=== PATIENT | male | born 1985 | race Caucasian/White ===

== ENCOUNTER 2016-09-19 21:32 | Emergency (ER) | payer OTHER ==
[~2016-09-19] VITALS: Ht 185.4 cm; Wt 78.6 kg
--- OUTSIDE RECORDS SUMMARY | 2016-09-19 21:42 | XMS REPORT | Referral Summary ---
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 Role Phone No PCP, Pt States PCP [phone] Encounter VC Date(s): 04/15/15 - 04/16/15 [facility] [address] [place] [address] [phone] Discharge Diagnosis: Acute kidney injury Discharge Diagnosis: Pancreatitis Discharge Diagnosis: Alcoholism Discharge Disposition: 01-Home or Self Care Attending Physician: Luis Rodriguez MD Admitting Physician: Kelsie Tidwell DO Vital Signs Most recent to 1 oldest [Reference Range]: Temperature Oral 36.4 degC [35.8-37.3 degC] (04/16/15 8:05 AM) Peripheral Pulse 64 bpm Rate [60-100 bpm] (04/16/15 8:05 AM) Heart Rate Monitored 95 bpm [60-100 bpm] (04/15/15 6:48 PM) Respiratory Rate 18 br/min [14-20 br/min] (04/16/15 8:05 AM) Blood Pressure 141/68 mmHg [90-140/60-90 mmHg] *HI* (04/16/15 8:05 AM) Mean Arterial 123 mmHg Pressure, Cuff (04/15/15 6:48 PM) SpO2 97 % (04/16/15 8:05 AM) Problem List Condition Effective Dates Status Health Status Informant Acute Active pain(Confirmed) Alcoholism(Confirmed Active ) At risk of venous 04/16/15 Active thromboembolus(Confi rmed)1 Acute kidney Active injury(Confirmed) Pancreatitis(Confirm Active ed) Tobacco Active patient user(Confirmed) 1Problem added by Discern Expert Allergies, Adverse Reactions, Alerts No Known Medication Allergies Medications [place] 10 mg-325 mg oral tablet 1 tabs, Oral, q4hr, as needed for pain, # 20 tabs, 0 Refill(s) Start Date: 04/16/15 Status: Orderedoxazepam 15 mg oral capsule 15 mg 1 caps, Oral, TID, # 21 caps, 0 Refill(s) Start Date: 04/16/15 Status: Orderedthiamine 100 mg oral tablet 100 mg 1 tabs, Oral, Daily, # 30 tabs, 0 Refill(s) Start Date: 04/16/15 Status: OrderedZofran 4 mg oral tablet 4 mg 1 tabs, Oral, q6hr, Nausea or Vomiting | as needed for nausea/vomiting, # 20 tabs, 0 Refill(s) Start Date: 04/16/15 Status: Ordered Results Hematology Most recent to 1 oldest [Reference Range]: WBC [4.8-10.8 8.4 10*3/uL 10*3/uL] (04/16/15 5:45 AM) RBC [4.60-6.20] 3.94 *LOW* (04/16/15 5:45 AM) Hgb [14.0-18.0 13.3 gm/dL gm/dL] *LOW* (04/16/15 5:45 AM) Hct [42.0-52.0 %] 39.3 % *LOW* (04/16/15 5:45 AM) MCV [82.0-99.0 fL] 99.7 fL *HI* (04/16/15 5:45 AM) MCH [27.0-32.0 pg] 33.8 pg *HI* (04/16/15 5:45 AM) MCHC [32.0-36.0 33.8 gm/dL gm/dL] (04/16/15 5:45 AM) RDW [11.5-14.5 %] 12.7 % (04/16/15 5:45 AM) Platelet [150-400 136 10*3/uL 10*3/uL] *LOW* (04/16/15 5:45 AM) MPV [9.4-12.3 fL] 10.9 fL (04/16/15 5:45 AM) Immature 0.2 % Granulocytes (04/15/15 3:16 PM) [0.0-1.0 %] Neutrophils [51-75 86 % %] *HI* (04/15/15 3:16 PM) Lymphocytes [20-46 7 % %] *LOW* (04/15/15 3:16 PM) Monocytes [4-11 %] 7 % (04/15/15 3:16 PM) Eosinophils [0-4 %] 0 % (04/15/15 3:16 PM) Basophils [0-2 %] 0 % (04/15/15 3:16 PM) Neutro Absolute 12.78 10*3 [1.90-7.00 10*3] *HI* (04/15/15 3:16 PM) Lymph Absolute 0.98 10*3 [0.80-3.30 10*3] (04/15/15 3:16 PM) [place] Absolute 1.09 10*3 [0.30-1.00 10*3] *HI* (04/15/15 3:16 PM) Eos Absolute 0.01 10*3 [0.00-0.50 10*3] (04/15/15 3:16 PM) Baso Absolute 0.01 10*3 [0.00-0.20 10*3] (04/15/15 3:16 PM) Nucleated RBC 0.0 /100 WBC Automated [0 /100 (04/15/15 3:16 PM) WBC] Coagulation Most recent to 1 oldest [Reference Range]: INR [0.9-1.2] 1.2 (04/16/15 5:45 AM) Chemistry Most recent to 1 oldest [Reference Range]: Sodium Lvl [136-144 137 mEq/L mEq/L] (04/16/15 5:45 AM) Potassium Lvl 3.6 mEq/L [3.6-5.1 mEq/L] (04/16/15 5:45 AM) Chloride [99-109 98 mEq/L mEq/L] *LOW* (04/16/15 5:45 AM) CO2 [22-32 mEq/L] 29 mEq/L (04/16/15 5:45 AM) AGAP [3-20] 10 (04/16/15 5:45 AM) BUN [4-20 mg/dL] 5 mg/dL (04/16/15 5:45 AM) Glucose Lvl [70-100 103 mg/dL mg/dL] *HI* (04/16/15 5:45 AM) Creatinine Lvl 0.61 mg/dL [0.64-1.27 mg/dL] *LOW* (04/16/15 5:45 AM) eGFR [>60] >60 1 (04/16/15 5:45 AM) Calcium Lvl 9.2 mg/dL [8.6-10.0 mg/dL] (04/16/15 5:45 AM) Albumin Lvl [3.5-4.8 3.8 gm/dL gm/dL] (04/16/15 5:45 AM) Total Protein 6.7 gm/dL [6.1-7.9 gm/dL] (04/16/15 5:45 AM) Globulin [1.9-4.3 2.9 gm/dL gm/dL] (04/16/15 5:45 AM) ALT [17-63 U/L] 60 U/L (04/16/15 5:45 AM) AST [15-41 U/L] 56 U/L *HI* (04/16/15 5:45 AM) Alk Phos [26-104 44 U/L U/L] (04/16/15 5:45 AM) Bili Total [0.2-1.2 1.5 mg/dL 2 mg/dL] *HI* (04/16/15 5:45 AM) Magnesium Lvl 1.4 mg/dL [1.8-2.5 mg/dL] *LOW* (04/15/15 3:16 PM) Lipase Lvl [8-48 206 U/L U/L] *HI* (04/16/15 5:45 AM) Chol [0-200 mg/dL] 120 mg/dL (04/16/15 5:45 AM) Trig [0-150 mg/dL] 41 mg/dL (04/16/15 5:45 AM) HDL [>40 mg/dL] 69 mg/dL (04/16/15 5:45 AM) LDL [0-100 mg/dL] 43 mg/dL (04/16/15 5:45 AM) VLDL Cholesterol 8 mg/dL [0-30 mg/dL] (04/16/15 5:45 AM) Cardiac Risk 1.7 [0.0-5.7] (04/16/15 5:45 AM) Hep A IgM Negative (04/16/15 5:45 AM) Hep Bs Ag Negative (04/16/15 5:45 AM) Hep C Ab Negative (04/16/15 5:45 AM) Hep B Core IgM Negative (04/16/15 5:45 AM) HIV 1 and 2 Abs Non-reactive (04/16/15 5:45 AM) 1Result Comment: Multiply eGFR results by 1.21 for race.2Result Comment: Naproxen, specifically the metabolite O-desmethylnaproxen, may cause spurious elevation in Total Bilirubin levels.Toxicology Most recent to 1 oldest [Reference Range]: Ethanol Lvl Not Detected (04/15/15 3:16 PM) U Amphetamine Scrn Negative (04/15/15 3:16 PM) U Cocaine Scrn Negative (04/15/15 3:16 PM) U Cannab Scrn Positive *ABN* (04/15/15 3:16 PM) U Opiate Scrn Negative (04/15/15 3:16 PM) U PCP Scrn Negative (04/15/15 3:16 PM) U Benzodiazepine Negative Scrn (04/15/15 3:16 PM) U Barbiturate Scrn Negative (04/15/15 3:16 PM) Methadone Lvl Negative (04/15/15 3:16 PM) Tricyclics Not Detected 1 (04/15/15 3:16 PM) 1Result Comment: Cut-off concentrations: Amphetamines: 1000 ng/mL Cocaine: 300 ng/mL Cannabinoid: 50 ng/mL Opiate: 300 ng/mL Phencyclidine (PCP): 25 ng/mL Benzodiazepine: 200 ng/mL Barbiturate: 200 ng/mL Methadone: 300 ng/mL Tricyclic: 300 ng/mL The urine drug screen assays are qualitative screens. A more specific GC/MS method must be performed to obtain a confirmed analytical result. Unconfirmed screening results must not be used for non-medical purposes(e.g. employment or legal testing)Urinalysis Most recent to 1 oldest [Reference Range]: UA Color Tami *ABN* (04/15/15 3:16 PM) UA Appear Clear (04/15/15 3:16 PM) UA pH [5.0-8.0] 7.0 (04/15/15 3:16 PM) UA Leuk Est Pos 1+ [Negative] *ABN* (04/15/15 3:16 PM) UA Nitrite Positive [Negative] *ABN* (04/15/15 3:16 PM) UA Protein Pos 1+ [Negative] *ABN* (04/15/15 3:16 PM) UA Glucose Negative [Negative] (04/15/15 3:16 PM) UA Ketones Pos 3+ [Negative] *ABN* (04/15/15 3:16 PM) UA Urobilinogen 8.0 mg/dL [<1.0 mg/dL] *ABN* (04/15/15 3:16 PM) UA Bili [Negative] Positive *ABN* (04/15/15 3:16 PM) UA Blood [Negative] Negative (04/15/15 3:16 PM) UA Spec Grav 1.031 [1.003-1.030] *HI* (04/15/15 3:16 PM) Type Clean Catch (04/15/15 3:16 PM) UA WBC [0-4] 5-10 *ABN* (04/15/15 3:16 PM) Epithelial Cells 2-5 (04/15/15 3:16 PM) UA Mucous Present (04/15/15 3:16 PM) Immunizations Vaccine Date Refusal Reason influenza virus vaccine, inactivated 04/16/15 Procedures No data available for this section Social History Social History Type Response Smoking Status Current every day smoker; Type: Cigarettes Assessment and Plan No data available for this section"
[2016-09-19] MEDS ORDERED: LORazepam 2 MG/ML (ATIVAN) 1 ML VIAL IV ONE (21:50)
[2016-09-19] MEDS ORDERED: MAGNESIUM SULFATE 1GM VIAL 2 GM, THIAMINE INJ 100 MG, MULTIVITAMIN INJ 10 ML in D5LR 1,... IV SCH (21:50)
--- NOTE | 2016-09-19 21:55 | NUR ---
Pt presents to ER in custody of poilce with c/o alcohol withdrawal. Pt admitted to ER room 1. Pt states he's been drinking at least 1 liter of scotch a day for years. He states he is having withdrawal with nausea. Medical information obtained from patient. Police informed staff that pt has given them six different names. Possibility that information obtained may not be completely accurate.
[2016-09-19] MEDS ORDERED: THIAMINE 100 MG/ML (VITAMIN B1) 2 ML VIAL ONE (22:00)
[2016-09-19] MEDS ORDERED: MULTIVITAMINS (MVI) 2 5 ML VIALS IV ONE (22:01)
[2016-09-19] MEDS ORDERED: MAGNESIUM SULFATE 1 GM/2 ML VIAL ONE (22:01)
[2016-09-19 22:04] LABS: BASOPHILS % (AUTO) 0 % (0-2); EOSINOPHILS % (AUTO) 0 % (0-4); LYMPHOCYTES # (AUTO) 1.5 X10^3; MEAN CORPUSCULAR HGB CONC 34.6 g/dL (31.0-37.0); MEAN CORPUSCULAR VOLUME 96 FL (80-100); MEAN PLATELET VOLUME 10.9 FL (6.0-9.5); MONOCYTES # (AUTO) 0.6 X10^3; MONOCYTES % (AUTO) 7 % (3-11); NEUTROPHILS # (AUTO) 6.4 X10^3; NEUTROPHILS % (AUTO) 75 % (51-67); PLATELET COUNT 179 10^3uL (150-450); WHITE BLOOD COUNT 8.57 10^3uL (4.0-11.0)
[2016-09-19 22:08] LABS: MEAN CORPUSCULAR HEMOGLOBIN 33.1 PG (26.0-34.0)
[2016-09-19 22:15] LABS: ALBUMIN 4.3 g/dL (3.4-5.0); ALKALINE PHOSPHATASE 84 U/L (38-126); ANION GAP 17.4 MEQ/L (3-15); BUN/CREATININE RATIO 13 (10-20); CALCULATED IONIZED CALCIUM 3.8 mg/dL (3.8-4.6); TOTAL PROTEIN 7.8 g/dL (6.4-8.5)
[2016-09-19 22:17] LABS: LIPASE* < 10 U/L (23-300)
[2016-09-19 23:22] LABS: CLARITY,URINE Clear; GLUCOSE, URINE (UA) Negative (Negative); LEUKOCYTE ESTERASE ,URINE Trace (Negative)
[2016-09-19 23:35] LABS: COLOR,URINE Dark Yellow
[2016-09-19 23:36] LABS: BILIRUBIN,URINE 2+ (Negative)
[2016-09-19 23:44] LABS: AMPHETAMINE SCREEN, URINE Negative (Negative); CANNABINOID SCREEN, URINE Positive (Negative); METHAMPHETAMINE SCREEN URINE S NEGATIVE (NEGATIVE); OPIATE SCREEN URINE Negative (Negative); PROPOXYPHENE STAT NEGATIVE (NEGATIVE); RBC,URINE 0-2 /HPF; URINE CENTRIFUGED VOLUME 12 mL
[2016-09-20] MEDS ORDERED: CHLR25C PO (00:27)
--- NOTE | 2016-09-20 00:29 | NUR ---
SINCE PT BROUGHT IN AT [id number] 2 [place] [employer] P[place] Addendum: 09/20/16 at 0029 by [id number] [address] [place] [employer] OFFICERS HAVE BEEN IN ROOM WITH THE PATIENT
[2016-09-20] MEDS ORDERED: LORazepam 1 MG (ATIVAN) TABLET PO ONE (00:30)
[2016-09-20] MEDS ORDERED: LORazepam 1 MG (ATIVAN) TABLET ONE (00:33)
--- NOTE | 2016-09-20 00:42 | NUR ---
Pt dismissed to care home in custody of police. Instructions provided to both officers and patient. Their understanding was stated. Informed them of need for prescription to be picked up Wednesday when pharmacy opens. Pt left ambulatory in hand and leg cuffs. No other concerns or questions presented.
[2016-09-20 00:52] VITALS: BP 142/91
== END 2016-09-20 00:42 | disposition home or self-care (01) ==
LOC: ED 21:38
DX: F10.232 Alcohol dependence with withdrawal with perceptual disturbance (principal); R74.0 Nonspecific elevation of levels of transaminase and lactic acid dehydrogenase [LDH]
CPT/HCPCS: 36415; 80053; 80307; 80320; 81003; 81015; 83690; 85025; 87088; 96365; 96366; 96375; 99283; J2060; J3411; J3475; 99282